=== PATIENT | male | born 1940 ===

== ENCOUNTER 2018-11-28 08:06 | Outpatient (CLI) | payer OTHER | END 2018-11-28 08:07 | disposition home or self-care (01) | LOC: SONOGRAMA 08:06 | DX: E04.1 Nontoxic single thyroid nodule (principal) ==

== ENCOUNTER 2021-09-22 14:12 | Inpatient (IN) | payer OTHER ==
[~2021-09-22] VITALS: Ht 170.2 cm; Wt 49.9 kg
[2021-09-22] MEDS ORDERED: LEVODOPA25 GM (14:30)
[2021-09-22] MEDS ORDERED: SEROQUEL50 MG PO (14:31)
[2021-09-22] MEDS ORDERED: RESTORIL15 M1 PO (14:31)
[2021-09-22] MEDS ORDERED: BUSPIRONE HCL7.5 MG (14:33)
--- NOTE | 2021-09-22 14:33 | NUR ---
SE RECIBE PTE EN AMBULANCIA LETARGICO ,PARAMEDICOS REFIEREN QUE EL PTE TIENE FIEBRE ,TOS ,CONGESTION NASAL,EL PTE TIENE ULCERAS,ILOSTOMIA NO TIENE MEDICO EN [facility],COPD.
--- NOTE | 2021-09-22 16:30 | NUR ---
PTE MASCULINO ALERTA Y ORIENTADO SOLO EN PERSONA EN COMPANIA DE FAMILIAR, ES EVALUADO POR . SE ORIENTA A FAMILIAR SOBRE ORDENES DE [place] REFIERE COMPRENDER. SE EXTRAEN MUESTRAS DE LABORATORIO Y SE CANALIZA VENA BAJO MEDIDAS ASEPTICAS. SE ADMINISTRAN LIQUIDOS INTRAVENOSOS, SABRINA ORDEN MEDICA. SE OBSERVAN ULCERA EN AREA DE SACRO Y TROCANTER R+ CON VENDAJES CON PRESENCIA DE EXUDADO. SE ANDREW MUESTRA DE CULTIVO, BAJO MEDIDAS ASEPTICAS. SE NOTIFICA A SKIN TEAM CONSULTA.
--- NOTE | 2021-09-22 21:52 | NUR ---
PTE RE EVALUADO POR EL DR. GUZMAN QUIEN ORDENA [place]. NUEVO./ MEDICAMENTOS ADMINISTRADOS SABRINA ORDEN MEDICA LUEGO DE ORIENTAR AL PACIENTE Y AL FAMILIAR. ABGS REALIZADOS POR MR. CANTU DE CUIDADO RESPIRATORIO
--- NOTE | 2021-09-23 00:29 | NUR ---
SE RECIBE PTE DLE TURNO ANTERIOR, ALERTA, EN COMPANIA DE FAMILIAR, UBICADO EN VALERIY NIVEL MAS BAJO, BRISENO DE IDENTIFICACION Y BARANDAS ELEVADAS POR PRECAUCION. SE OBSERVA CON BUEN PATRON RESPIRATORIO Y PIEL TIBIA AL TACTO. IV PATENTE Y JOYCE DE EDEMA O ERITEMA CON 0.9% NSS @100ML/HR. PENDIENTE REALIZAR U/C. SE NOTIFICAN TERAPIAS RESPIRATORIAS A PERSONAL DE TERAPIA RESPIRATORIA DE TURNO POR MR Radha MIRELES. PTE PRESENTA ULCERA EN GLUTEO RT Y EN TALONES. PENDIENTE CONSULTA CON DR Tre SALINAS. SE MANTIENE BAJO OBSERVACION.
--- NOTE | 2021-09-23 06:59 | NUR ---
SE RECIBE A PACIENTE DEL TURNO ANTERIOR CON BARRANDAS ARRIBA Y CAMA EN LO MAS BAJO, CON MARY JANE PATENTE DE 0.9%. PACIENTE CONSULTADO CON , MUESTRAS DE ORINA PENDIENTES.
--- NOTE | 2021-09-23 07:39 | NUR ---
SE EVALUA A PACIENTE MASCULINO PARA PODER PROCESAR MUESTRA DE ORINA, PACIENTE SE MANTIENE CON COLECTOR EN ESPERA DE COLECTAR ORINA, AL MOMENTO NO SE ONSERVA EGRESO DE ORINA. SE MANTIENE EN OBSERVACION.
--- NOTE | 2021-09-23 08:23 | NUR ---
SE REALIZA ADMINISTRACION DE MEDICAMNETOS POR ORDEN MEDICA.
--- NOTE | 2021-09-23 08:34 | NUR ---
SE COLECTA MUESTRAS DE ORINA A PACIENTE Y SE LE ADMINISTRA MEDICAMENTOS SABRINA ORDEN MEDICA SE EDUCA A FAMILIAR SOBRE DICHO MEDICAMENTO Y [facility] REFIERE ENTENDER.
--- NOTE | 2021-09-23 09:03 | NUR ---
SE NOTIFICA A SANJURJO TERAPIAS PENDIENTES.
--- NOTE | 2021-09-23 10:46 | NUR ---
PTE ADMITIDO, SE LE REALIZAN MUESTRAS DE MYCOPLASMA, COVID-19 MOLECULAR E INFLUENZA. ORDEN DE CATETERIZACION PENDIENTE, TURNO 11-7 INTENTARON REALIZARLE LA CATETERIZACION Y NO SE LOGRO. TURNO 7-3 INTENTARON NUEVAMENTE SIN EXITO. CATETERIZACION QUEDA PENDIENTE.
[2021-09-23] MEDS ORDERED: CARBIDOPA-LEVO1 EA10 (13:12)
[2021-09-23] MEDS ORDERED: LATANOPROST2.5 ML (13:12)
[2021-09-23] MEDS ORDERED: NEUPRO1 EAC4 (13:12)
[2021-09-23] MEDS ORDERED: OMEPRAZOLE40 MG (13:13)
[2021-09-23] MEDS ORDERED: FLOVENT HFA12 GM (13:13)
[2021-09-23] MEDS ORDERED: AMITIZA8 MCG (13:13)
[2021-09-23] MEDS ORDERED: FAMOTIDINE40 MG (13:13)
== END 2021-09-30 20:21 | disposition home or self-care (01) | DRG 592 ==
LOC: ER 14:12 → SEC-K 09-23 11:33 → MEDI 09-23 11:33
PROVIDERS: ADMIT Internal Medicine; ATTEND Internal Medicine
DX: L89.153 Pressure ulcer of sacral region, stage 3 (principal); A41.9 Sepsis, unspecified organism; N39.0 Urinary tract infection, site not specified; L89.214 Pressure ulcer of right hip, stage 4; G20 Parkinson's disease; B96.4 Proteus (mirabilis) (morganii) as the cause of diseases classified elsewhere; B96.5 Pseudomonas (aeruginosa) (mallei) (pseudomallei) as the cause of diseases classified elsewhere; B95.2 Enterococcus as the cause of diseases classified elsewhere; B96.1 Klebsiella pneumoniae [K. pneumoniae] as the cause of diseases classified elsewhere; B95.7 Other staphylococcus as the cause of diseases classified elsewhere; B96.89 Other specified bacterial agents as the cause of diseases classified elsewhere; Z20.822 Contact with and (suspected) exposure to COVID-19; Z74.01 Bed confinement status; G30.8 Other Alzheimer's disease; F02.80 Dementia in other diseases classified elsewhere, unspecified severity, without behavioral disturbance, psychotic disturbance, mood disturbance, and anxiety